=== PATIENT | male | born 1980 | race Caucasian/White ===

== ENCOUNTER 2020-10-24 11:38 | Outpatient (CLI) | payer BC ==
[2020-10-24 12:42] LABS: Hemoglobin 15.1 g/dL (13.5-17.5); Mean Corpuscular HGB CONC 37.4 g/dL (32.0-36.0); Mean Corpuscular Hemoglobin 33.8 pg (27.0-33.0); Mean Corpuscular Volume 90.4 fl (81.2-95.1); Mean Platelet Volume 10.6 fl (7.4-10.4); Platelet Count 234 10x3/uL (150-450); RBC Distribution Width 11.9 % (11.5-14.5); Red Blood Cell (RBC) Count 4.47 10x6/uL (4.32-5.72); White Blood Cell (WBC) Count 7.1 10x3/uL (3.5-10.5)
[2020-10-24 12:51] LABS: PTT 26.4 sec (22.0-33.0); Prothrombin Time 10.7 sec (9.5-12.1)
[2020-10-24 17:55] LABS: SARS-CoV-2 PCR by NAA Not Detected (NotDetected)
== END 2020-10-24 11:39 | disposition home or self-care (01) ==
LOC: LABBT 11:38
PROVIDERS: ATTEND Neurological Surgery
DX: Z01.812 Encounter for preprocedural laboratory examination (principal); Z20.822 Contact with and (suspected) exposure to COVID-19; M51.27 Other intervertebral disc displacement, lumbosacral region
CPT/HCPCS: 85027; 85610; 85730; 87635; U0003; U0005

== ENCOUNTER 2020-10-30 06:50 | Day surgery (SDC) | payer BC ==
[2020-10-27 15:25] VITALS: BMI 35.6
[2020-10-30] MEDS ORDERED: Fentanyl 100 MCG/2 ML VIAL ONE ×3 (07:06→11:26)
[2020-10-30] MEDS ORDERED: Fentanyl 250 MCG/5 ML VIAL ONE (07:11)
[2020-10-30] MEDS ORDERED: Midazolam HCl 2 mg/2 ml Vial ONE (07:17)
[2020-10-30] MEDS ORDERED: Ondansetron PF 4 MG/2 ML Vial ONE (07:19)
[2020-10-30] MEDS ORDERED: ePHEDrine Sulfate 50 MG/10 ML VIAL ONE (07:19)
[2020-10-30] MEDS ORDERED: Ketorolac Tromethamine 30 MG/ML VIAL ONE (07:19)
[2020-10-30] MEDS ORDERED: PROPOFOL 200 MG/20 ML VIAL ONE (07:19)
[2020-10-30] MEDS ORDERED: Lidocaine 1% PF 5 ML VIAL ONE (07:19)
[2020-10-30] MEDS ORDERED: Dexamethasone 20 MG/5 ML VIAL ONE (07:19)
[2020-10-30] MEDS ORDERED: Glycopyrrolate 0.2 MG/ML 5 ML SYRINGE ONE (07:19)
[2020-10-30] MEDS ORDERED: Rocuronium Bromide 10 MG/ML (10ML VIAL) ONE (07:19)
[2020-10-30] MEDS ORDERED: EPINEPHrine 1 MG/ML AMP ONE (07:20)
[2020-10-30] MEDS ORDERED: Sodium Chloride 0.9% 10 ML ONE (07:20)
[2020-10-30] MEDS ORDERED: Thrombin 5000 UNITS/5 ML VIAL ONE (07:20)
[2020-10-30] MEDS ORDERED: Bupivacaine PF 0.5% 30 ML VIAL ONE (07:20)
[2020-10-30] MEDS ORDERED: Milk Of Magnesia 30 ML UDCUP PO PRN (10:39)
[2020-10-30] MEDS ORDERED: Acetaminophen/Codeine 30-300mg Tablet PO PRN ×2 (10:39)
[2020-10-30] MEDS ORDERED: Promethazine 25 MG TAB PO PRN (10:39)
[2020-10-30] MEDS ORDERED: Bisacodyl 10 MG SUPP PR PRN (10:39)
[2020-10-30] MEDS ORDERED: Promethazine HCl 12.5 MG SUPP PR PRN (10:39)
[2020-10-30] MEDS ORDERED: tiZANidine HCl 4 MG TAB PO PRN (10:39)
[2020-10-30] MEDS ORDERED: Prochlorperazine 10 MG/2 ML VIAL IM PRN (10:39)
[2020-10-30] MEDS ORDERED: diphenhydrAMINE 50 MG/ML VIAL IVP PRN (10:39)
[2020-10-30] MEDS ORDERED: Ondansetron PF 4 MG/2 ML Vial IVP PRN (10:39)
[2020-10-30] MEDS ORDERED: Promethazine HCl 25 MG/ML VIAL IM PRN (10:39)
[2020-10-30] MEDS ORDERED: diphenhydrAMINE 25 MG CAP PO PRN (10:39)
[2020-10-30] MEDS ORDERED: Morphine 2 MG/ML VIAL SLOW IVP PRN (10:39)
[2020-10-30] MEDS ORDERED: Scopolamine 1.5 mg/72 hour Patch TD SCH (10:45)
[2020-10-30] MEDS ORDERED: Sodium Chloride 0.9% 1,000 ML IV SCH (10:45)
[2020-10-30] MEDS ORDERED: CEFAZOLIN 2 GM in Premix Bag 1 BAG IVPB SCH (11:00)
[2020-10-30] MEDS ORDERED: HYDROcodone/Acetaminophen 5/325 mg Tablet ONE (12:19)
[2020-10-30] MEDS ORDERED: hydrALAZINE 20 MG/ML VIAL ONE (12:29)
[2020-10-31] MEDS ORDERED: Tamsulosin HCl 0.4 MG CAP PO SCH (06:00)
== END 2020-10-30 14:15 | disposition home or self-care (01) ==
LOC: SDC 06:50
PROVIDERS: ATTEND Neurological Surgery
PROC: 0SB40ZZ Excision of Lumbosacral Disc, Open Approach (ICD-10-PCS; principal; 2020-10-30)
PROC: 01NB0ZZ Release Lumbar Nerve, Open Approach (ICD-10-PCS; principal; 2020-10-30)
DX: M51.17 Intervertebral disc disorders with radiculopathy, lumbosacral region (principal); M10.9 Gout, unspecified; F17.200 Nicotine dependence, unspecified, uncomplicated; Z79.899 Other long term (current) drug therapy
CPT/HCPCS: 76000; J0171; J0360; J0690; J1100; J1885; J2250; J2405; J2704; J3010; J3370; J3490; S0020

== ENCOUNTER 2022-07-29 19:30 | Outpatient (CLI) | payer BC | END 2022-07-29 19:31 | disposition home or self-care (01) | LOC: SLEEPLAB 19:30 | PROVIDERS: ATTEND Family Medicine | DX: G47.33 Obstructive sleep apnea (adult) (pediatric) (principal); R53.83 Other fatigue; E66.9 Obesity, unspecified; R06.83 Snoring; I10 Essential (primary) hypertension | CPT/HCPCS: 95811 ==